=== PATIENT | female | born 1990 | race Caucasian/White ===

== ENCOUNTER → 2020-10-02 | Outpatient (CLI) | payer OTHER ==
[~2020-10-02] MED LIST: PYRIDIUM100 MG PO
== END ==
LOC: US 09-25 10:30
DX: N63.10 Unspecified lump in the right breast, unspecified quadrant (principal)
CPT/HCPCS: 76641-RT

== ENCOUNTER → 2021-01-10 | Outpatient (CLI) | payer OTHER | LOC: US 12-15 09:15 | DX: R10.13 Epigastric pain (principal); K76.0 Fatty (change of) liver, not elsewhere classified | CPT/HCPCS: 76700 ==

== ENCOUNTER → 2021-02-09 | Outpatient (CLI) | payer OTHER | LOC: CT 01-22 08:00 | DX: R10.84 Generalized abdominal pain (principal) | CPT/HCPCS: Q9967 ==

== ENCOUNTER 2022-05-06 22:10 | Emergency (ER) | payer OTHER | END 2022-05-07 03:30 | disposition left against medical advice (07) | LOC: ER1 22:10 | DX: Z53.21 Procedure and treatment not carried out due to patient leaving prior to being seen by health care provider (principal) ==